=== PATIENT | female | born 2005 | race Caucasian/White ===

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

== ENCOUNTER 2025-01-06 14:15 | Outpatient (CLI) | payer OTHER, MEDICAID, SELFPAY ==
[2025-01-06 20:21] LABS: Chlamydia DNA Amplified* NOT DETECTED (No Detected); GC DNA Amplified* NOT DETECTED (No Detected)
[2025-01-07 13:07] LABS: Bacterial Vaginosis* Negative (Negative); Candida glab/krus NOT DETECTED (No Detected)
== END 2025-01-06 14:16 | disposition home or self-care (01) ==
PROVIDERS: PCP Nurse Practitioner Family; Visit Provider Registered Nurse
DX: N89.8 Other specified noninflammatory disorders of vagina (principal); Z11.3 Encounter for screening for infections with a predominantly sexual mode of transmission
CPT/HCPCS: 81513; 87086; 87481; 87491; 87591; 87661

== ENCOUNTER 2025-01-07 11:39 | Emergency (ER) | payer OTHER, MEDICAID, SELFPAY ==
[2025-01-07 11:46] VITALS: BP 119/79; PULSE 81; RESP 16; TEMP 36.2; O2SAT 98; BMI 41.4
--- NOTE | 2025-01-07 11:52 | ED_ITS ---
HPI - General Adult General Chief complaint: Abdominal Pain Stated complaint: two ovarian cysts- has pain Time Seen by Provider: 01/07/25 11:42 History of Present Illness HPI narrative: Patient here with similar abdominal pain symptoms she was recently treated for within the last couple weeks. She completed the course of Macrobid and felt better for a little while but feels that the cysts are starting to cause more pain . States continuous pain for the last two days (left back progressing into entire abdomen), leg tingling, and also nauseated. 19-year-old young man presenting to the emergency depart with concern of increasing abdominal pain. Was diagnosed on 12/21 little over 2 weeks ago with suspected hemorrhagic ovarian cyst. Followed up due to increased pain over the last couple of days seen yesterday in clinic. Had had increased vaginal discharge as well. By my review of records though this vaginal swab is still pending. 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 Has had pain increasing into the back and wrapping around the front. Is feeling number tingling in the upper abdomen left and through the hips as well. No vomiting. No fever. Vaginal discharge appears to have resolved she reports. Due to size of lesions/cis concern had been expressed of possibility of torsion. That is a major concern prompting visit here today. Pain is persistent; not episodic. see 12/21 ultrasound report below INDICATION: Pelvic pain. TECHNIQUE: Ultrasound pelvis transvaginal. Real-time sonographic images with spectral and color Doppler imaging of the ovaries were obtained. COMPARISON: CT abdomen and pelvis 12/21/2024. FINDINGS: Uterus: 6.7 x 3.5 x 4.8 cm. Normal echotexture of the myometrium. No masses. Endometrium: Endometrial thickness measures 8.6 mm. No sign of endometrial mass or fluid. Ovaries: Right ovary measures 5.9 x 4.5 x 5.0 cm and left ovary measures 3.3 x 2.3 x 1.5 cm. Right ovarian simple cyst measuring 3.2 x 3.4 x 3.5 cm. Right ovarian complex cyst measuring 3.6 x 4.5 x 3.6 cm, likely a hemorrhagic cyst. Normal arterial and venous blood flow is demonstrated in both ovaries. Cul-de-sac: No significant free fluid. IMPRESSION: 1. Right ovarian 3.5 cm simple cyst and 4.5 cm hemorrhagic cyst. 2. Normal arterial and venous blood flow is demonstrated in the right ovary on the current examination, however intermittent torsion can not be excluded. Dictated by Derick Smiley MD @ 12/21/2024 3:13:33 AM Related Data Home Medications ?Medication ?Instructions ?Recorded ?Confirmed sertraline 100 mg tablet 100 mg PO 01/06/25 01/06/25 Allergies Allergy/AdvReac Type Severity Reaction Status Date / Time codeine Allergy Intermediate Vomiting Verified 01/06/25 11:51 Review of Systems Status of ROS: Reports: 6 or more systems reviewed and unremarkable except as noted in History and below PFSH PFSH Family History Mother FH: mental illness Father FH: mental illness Alcohol dependence Other Liver disease Stroke Social History Smoking Status: Never smoker Do you use any of these nicotine containing products: None How often do you have a drink containing alcohol: never How often do you have six or more drinks on one occasion: Never AUDIT-C Alcohol total score: 0 Non-prescribed substance use: denies use Exam Narrative: Exam Narrative: Pleasant. NAD. Skin is warm dry. Heart in regular rate and rhythm. Lungs appear to be clear. Abdomen is soft overweight. She is tender to palpation in the right adnexal area through midline of the pelvis but not at the left. Does have some pain to palpation or percussion about the right SI joint as well. Sore also to palpation in the epigastrium. Abdominal exam is without peritoneal signs. Well-perfused peripherally without edema. Genitourinary exam is not done. Const: Vital Signs, click to edit/add: Vital Signs - 24 hr 01/07/25 11:46 Temperature 97.1 F L Pulse Rate [Pulse Oximeter] 81 Respiratory Rate 16 Blood Pressure [Ri ght Upper Arm] 119/79 Pulse Oximetry 98 Oxygen Delivery Me thod Room Air Documenting provider has reviewed patient's vital signs: yes Course Vital Signs Vital signs: Initial Vital Signs Temperature 97.1 F L 01/07/25 11:46 Temperature Source Temporal Artery Scan 01/07/25 11:46 Pulse Rate 81 01/07/25 11:46 Respiratory Rate 16 01/07/25 11:46 Blood Pressure 119/79 01/07/25 11:46 Blood Pressure Mean 92 01/07/25 11:46 Blood Pressure Position Sitting 01/07/25 11:46 Pulse Oximetry 98 01/07/25 11:46 Oxygen Delivery Method Room Air 01/07/25 11:46 Vital Signs Temperature 97.1 F L 01/07/25 11:46 Pulse Rate 81 01/07/25 11:46 Respiratory Rate 16 01/07/25 11:46 Blood Pressure 119/79 01/07/25 11:46 Pulse Oximetry 98 01/07/25 11:46 Oxygen Delivery Method Room Air 01/07/25 11:46 Temperature 97.1 F L 01/07/25 11:46 Pulse Rate 81 01/07/25 11:46 Respiratory Rate 16 01/07/25 11:46 Blood Pressure 119/79 01/07/25 11:46 Pulse Oximetry 98 01/07/25 11:46 Oxygen Delivery Method Room Air 01/07/25 11:46 Medical Decision Making MDM Narrative Medical decision making narrative: Did call the lab to locate results of vaginal swab. This was still pending to be run. Located and will be run now. Otherwise a check labs to verify that liver is not involved given upper abdominal to back pain. Urinalysis was normal yesterday. She is not experiencing dysuria. Given understandable concerns will repeat pelvic ultrasound. I think unlikely to be experiencing torsion but may have worsening leaking of these cysts. Plan in clinic follow-up had been to repeat imaging to verify resolution in about 6 weeks or so. She does not feel that she needs anything for pain or nausea at this point. Swabs from yesterday ultimately or negative. Discussed findings of ultrasound with box blank machine operator helper. Apparently has had resolution of cyst without notable pelvic fluid. Radiology over-read below INDICATION: Recent diagnosis of hemorrhagic ovarian cysts, increasing pain COMPARISON: 12/21/2024 CT and ultrasound TECHNIQUE: Transvaginal: Fontenot-scale and color Doppler ultrasound of the uterus and ovaries from a transvaginal approach. Transvaginal ultrasound of the pelvis was performed to better visualize the genitourinary organs, such as the ovaries and/or endometrium. Color-flow and spectral Doppler imaging of both ovaries is performed. FINDINGS: Reported last menstrual period: 12/26/2024. The uterus is anteverted and measures 6.6 x 3.1 x 4.5 cm. No uterine masses. The endometrial stripe measures 0.6 cm in double thickness. Trilaminar endometrium. No endometrial masses. The cervix is normal. The right ovary measures 3.0 x 4.1 x 2.7 cm. Right ovarian volume is 17.5 mL. There are scattered simple cysts/follicles. The largest follicle measures 1.3 x 2.4 x 1.5 cm. Physiologic appearance without a worrisome cystic lesion or solid ovarian / adnexal mass. There is normal arterial and venous color Doppler flow and normal arterial and venous waveforms on duplex Doppler. The left ovary measures 2.3 x 3.3 x 1.6 cm. Left ovarian volume is 6.3 mL. Physiologic appearance without a dominant cystic lesion or solid ovarian / adnexal mass. There is normal arterial and venous color Doppler flow and normal arterial and venous waveforms on duplex Doppler. No free fluid. IMPRESSION: Right ovarian hemorrhagic cysts are resolving. There now only simple cysts measuring less than 3 centimeters on the right. No torsion. No rupture. Labs are reassuring I think not necessitating CT imaging otherwise. Does seem to have discomfort emanating from SI joint. This might be causing some pain through the abdomen as well or these the hips I would think. (unfortunately left ER prior to receiving discharge instructions and exercises as noted below) I am happy you are feeling better. Would keep a close eye on this though over the next 48 hours or so. Return for marked increase in abdominal pain like in that right lower abdomen and particularly if accompanied by fever or marked increase in nausea. Can take up to 800 mg of ibuprofen per dose for up to 1000 mg of acetaminophen per dose. Alternative to the ibuprofen might be up to 500 mg of naproxen 2 times daily. Lidocaine patches can be helpful over sore SI joints. You can buy these [id number]. Sounds like your mom has some available. See handout on sacroiliac joint pain for exercises you might try as well. Stay well-hydrated. Medical Records Medical records reviewed: Yes I reviewed the patient's medical records Lab Data Lab results reviewed: Yes I reviewed the patient's lab results Labs: Lab Results 01/07/25 Range/Units 12:30 WBC 8.96 (4.50-11.00) K/uL RBC 4.72 (4.00-5.20) m/uL Hgb 13.2 (12.0-16.0) gm/dL Hct 41.0 (33.0-51.0) % MCV 87 (80-100) fL MCH 28 (26-34) pg MCHC 32 (32-36) gm/dL RDW Coeff of Krun[place] 11.8 (11.5-15.5) % Plt Count 303 (140-440) K/uL Neut % (Auto) 62.0 (42.0-72.0) % Lymph % (Auto) 29.1 (20-44) % [place] % (Auto) 7.0 (0.0-11.0) % Eos % (Auto) 1.5 (0.0-7.0) % Baso % (Auto) 0.2 (0.0-3.0) % Neut # (Auto) 5.55 (1.7-7.0) K/uL Lymph # (Auto) 2.61 (0.90-2.90) K/uL [place] # (Auto) 0.60 (0.00-0.90) K/UL Eos # (Auto) 0.13 (0.00-0.50) K/uL Baso # (Auto) 0.02 (0.00-0.30) K/uL Abs Immat Gran (auto) 0.02 (0.00-0.30) K/uL Imm/Tot Granulo (auto) 0.2 % Total Bilirubin 0.5 (0.1-1.5) mg/dL Direct Bilirubin 0.2 (0.0-0.5) mg/dL AST 26 (12-35) U/L ALT 20 (4-35) U/L Alkaline Phosphatase 81 (40-150) U/L C-Reactive Protein 1.1 H (0.5-1.0) mg/dL Total Protein 7.6 (6.0-8.3) g/dL Albumin 4.5 (3.3-5.0) g/dL Discharge Plan Discharge Clinical Impression: Pelvic pain, Pain of right sacroiliac joint Patient Disposition: Home w/ Parent or Adult Condition: Improved Instructions: Pelvic Pain (ED) Additional Instructions: I am happy you are feeling better. Would keep a close eye on this though over the next 48 hours or so. Return for marked increase in abdominal pain like in that right lower abdomen and particularly if accompanied by fever or marked increase in nausea. Can take up to 800 mg of ibuprofen per dose for up to 1000 mg of acetaminophen per dose. Alternative to the ibuprofen might be up to 500 mg of naproxen 2 times daily. Lidocaine patches can be helpful over sore SI joints. You can buy these [id number]. Sounds like your mom has some available. See handout on sacroiliac joint pain for exercises you might try as well. Stay well-hydrated. Prescriptions: No Action sertraline 100 mg tablet 100 mg PO Follow Up/Referrals: Jovanna Horton KITCHEN BATH DESIGNER [Primary Care Provider, Family Practice] Stand Alone Forms: [employer] Info Instructions
--- NOTE | 2025-01-07 12:16 | CRLHL7_ITS ---
For Patients: As a result of the Century Cures Act, medical imaging exams and procedure reports are released immediately into your electronic medical record. You may view this report before your referring provider. If you have questions, please contact your health care provider. INDICATION: Recent diagnosis of hemorrhagic ovarian cysts, increasing pain COMPARISON: 12/21/2024 CT and ultrasound TECHNIQUE: Transvaginal: Fontenot-scale and color Doppler ultrasound of the uterus and ovaries from a transvaginal approach. Transvaginal ultrasound of the pelvis was performed to better visualize the genitourinary organs, such as the ovaries and/or endometrium. Color-flow and spectral Doppler imaging of both ovaries is performed. FINDINGS: Reported last menstrual period: 12/26/2024. The uterus is anteverted and measures 6.6 x 3.1 x 4.5 cm. No uterine masses. The endometrial stripe measures 0.6 cm in double thickness. Trilaminar endometrium. No endometrial masses. The cervix is normal. The right ovary measures 3.0 x 4.1 x 2.7 cm. Right ovarian volume is 17.5 mL. There are scattered simple cysts/follicles. The largest follicle measures 1.3 x 2.4 x 1.5 cm. Physiologic appearance without a worrisome cystic lesion or solid ovarian / adnexal mass. There is normal arterial and venous color Doppler flow and normal arterial and venous waveforms on duplex Doppler. The left ovary measures 2.3 x 3.3 x 1.6 cm. Left ovarian volume is 6.3 mL. Physiologic appearance without a dominant cystic lesion or solid ovarian / adnexal mass. There is normal arterial and venous color Doppler flow and normal arterial and venous waveforms on duplex Doppler. No free fluid. IMPRESSION: Right ovarian hemorrhagic cysts are resolving. There now only simple cysts measuring less than 3 centimeters on the right. No torsion. No rupture. Dictated by Goldie Rubalcava MD @ 01/07/2025 1:04:20 PM (Electronically Signed)
[2025-01-07 12:41] LABS: Hematocrit 41.0 % (33.0-51.0); Hemoglobin* 13.2 gm/dL (12.0-16.0); Immature Granulocytes Abs Auto 0.02 K/uL (0.00-0.30); Immature Granulocytes Pct Auto 0.2 %; Lymphocytes Absolute Auto 2.61 K/uL (0.90-2.90); Mean Corpuscular HGB Conc 32 gm/dL (32-36); Mean Corpuscular Hemoglobin 28 pg (26-34); Mean Corpuscular Volume 87 fL (80-100); RDW Coefficient of Variation % 11.8 % (11.5-15.5); Red Blood Count 4.72 m/uL (4.00-5.20); White Blood Count* 8.96 K/uL (4.50-11.00)
[2025-01-07 12:43] LABS: Slide Review Reflex No
[2025-01-07 12:52] LABS: Albumin* 4.5 g/dL (3.3-5.0)
[2025-01-07 12:55] LABS: Alanine Aminotransferase* 20 U/L (4-35); Alkaline Phosphatase* 81 U/L (40-150); Aspartate Amino Transferase* 26 U/L (12-35); Bilirubin Direct* 0.2 mg/dL (0.0-0.5); Bilirubin Total* 0.5 mg/dL (0.1-1.5); Total Protein* 7.6 g/dL (6.0-8.3)
== END 2025-01-07 13:36 | disposition home or self-care (01) ==
PROVIDERS: Emergency Provider Family Medicine; PCP Nurse Practitioner Family
DX: B34.9 Viral infection, unspecified (principal)
CPT/HCPCS: 36415; 76830; 80076; 85025; 86140; 93976; 99284

== ENCOUNTER 2025-03-10 10:59 | Outpatient (CLI) | payer OTHER, SELFPAY ==
--- NOTE | 2025-03-10 11:15 | CRLHL7_ITS ---
For Patients: As a result of the Century Cures Act, medical imaging exams and procedure reports are released immediately into your electronic medical record. You may view this report before your referring provider. If you have questions, please contact your health care provider. CLINICAL HISTORY: Ovarian cyst COMPARISON: 01/07/2025 TECHNIQUE: 2D mclaughlin-scale and color Doppler images were acquired of the pelvis using a transvaginal approach. FINDINGS: On transvaginal imaging, the myometrium has a normal uniform echotexture. The uterus measures 7.0 x 2.9 x 4.5 cm. The endometrial lining measures 10 mm in thickness. The left ovary measures 3.9 x 2.6 x 2.3 cm in size and the right ovary measures 3.5 x 2.1 x 2.4 cm. The ovaries demonstrate normal arterial and venous blood flow on color Doppler analysis. There are no suspicious fluid collections within the cul-de-sac. IMPRESSION: Resolution of the previously noted ovarian cyst. Dictated by Aakash Clark MD @ 03/10/2025 11:57:36 AM (Electronically Signed)
== END 2025-03-10 11:00 | disposition home or self-care (01) ==
LOC: US 11:00
PROVIDERS: PCP Nurse Practitioner Family; Visit Provider Registered Nurse
DX: N83.209 Unspecified ovarian cyst, unspecified side (principal)
CPT/HCPCS: 76830

== ENCOUNTER 2025-05-17 13:33 | Outpatient (CLI) | payer OTHER, SELFPAY ==
[2025-05-17 17:46] LABS: Chlamydia DNA Amplified* NOT DETECTED (No Detected); GC DNA Amplified* NOT DETECTED (No Detected)
== END 2025-05-17 13:34 | disposition home or self-care (01) ==
LOC: NFLDREF 13:34
PROVIDERS: PCP Nurse Practitioner Family; Visit Provider Physician Assistant
DX: R10.20 Pelvic and perineal pain unspecified side (principal)
CPT/HCPCS: 87491; 87591